=== PATIENT | female | born 1945 | race Caucasian/White ===

== ENCOUNTER → 2016-11-29 | Outpatient (CLI) | payer OTHER | LOC: RAD 15:48 | DX: M54.9 Dorsalgia, unspecified (principal); M47.816 Spondylosis without myelopathy or radiculopathy, lumbar region | CPT/HCPCS: 72110 ==

== ENCOUNTER → 2016-12-13 | Outpatient (CLI) | payer OTHER | LOC: EMI 17:09 | DX: M54.16 Radiculopathy, lumbar region (principal); M51.26 Other intervertebral disc displacement, lumbar region | CPT/HCPCS: 72148 ==

== ENCOUNTER 2021-09-23 12:35 | Emergency (ER) | payer MEDICARE, MEDICAID ==
[~2021-09-23 12:35] MED LIST: ADVAIR HFA 230/1 INH INH; ASPIR 8181 MG PO; ASPIR-LOW81 MG PO; ATORVASTATIN CA20 MG PO; BRILINTA 90 MG90 MG PO; CEFPODOXIME PR200 MG PO; CRESTOR20 MG PO; IMDUR ER TAB 3030 MG PO; LOPRESSOR 25 MG25 MG PO; LOPRESSOR100 MG PO; MEDROL DOSEPAK 24 MG PO; NITROGLYCERIN0.4 MG SL; PANTOPRAZOLE SO40 MG PO; TOPROL XL25 MG PO
[2021-09-23 13:01] LABS: HEMOGLOBIN 14.3 gm/dl (12.3-15.3); RED BLOOD COUNT 4.57 M/UL (4.00-5.10); WHITE BLOOD COUNT 7.7 K/UL (4.5-11.0)
== END 2021-09-23 15:15 | disposition home or self-care (01) ==
LOC: ER1 12:35
PROVIDERS: Family Medicine
DX: N28.9 Disorder of kidney and ureter, unspecified (principal)
CPT/HCPCS: 80048; 83735; 85025; 93005; 99284

== ENCOUNTER 2022-02-22 13:16 | Inpatient (IN) | payer MEDICARE, OTHER ==
[~2022-02-22] VITALS: Ht 165.1 cm; Wt 77.1 kg
[2022-02-22 14:03] LABS: HEMOGLOBIN 14.1 gm/dl (12.3-15.3); RED BLOOD COUNT 4.71 M/UL (4.00-5.10); WHITE BLOOD COUNT 6.7 K/UL (4.5-11.0)
[2022-02-22 14:24] LABS: BUN/CREATININE RATIO 17 (0-10)
[2022-02-22] MEDS ORDERED: CILOSTAZOL100 MG PO (16:51)
[2022-02-22] MEDS ORDERED: CRESTOR20 MG PO (16:51)
[2022-02-22] MEDS ORDERED: TRAMADOL-ACETA1 EACH PO (16:52)
[2022-02-22] MEDS ORDERED: BRILINTA90 MG PO (16:52)
[2022-02-22] MEDS ORDERED: ASPIRIN EC81 MG PO (16:52)
[2022-02-22] MEDS ORDERED: FUROSEMIDE20 MG PO (16:52)
[2022-02-23 02:57] LABS: HEMOGLOBIN 13.4 gm/dl (12.3-15.3); RED BLOOD COUNT 4.48 M/UL (4.00-5.10); WHITE BLOOD COUNT 7.1 K/UL (4.5-11.0)
--- NOTE | 2022-02-23 16:01 | NUR ---
DR. BRAVO on the floor seeing patient and received order.
[2022-02-24 03:49] LABS: HEMOGLOBIN 13.6 gm/dl (12.3-15.3); RED BLOOD COUNT 4.74 M/UL (4.00-5.10)
[2022-02-24 03:52] LABS: WHITE BLOOD COUNT 3.4 K/UL (4.5-11.0)
--- NOTE | 2022-02-24 12:53 | NUR ---
PATIENT NOTED TO HAVE OXYGEN SATURATION BELOW 90% AT TIMES. PATIENT OFTEN REMOVES NASAL CANNULA FOR COMFORT, MOUTH BREATHES DURING SLEEP, AND DESATS WHEN EATING. RN, RESPIRATORY THERAPIST, AND OTHER STAFF REMIND PATIENT FREQUENTLY TO BREATH IN OXYGEN VIA NASAL CANNULA. PATIENT VERBALIZES UNDERSTANDING BUT, EPISODES CONTINUE.
--- NOTE | 2022-02-24 15:48 | NUR ---
RN ENTERED PATIENT'S ROOM AFTER TELEMETRY NOTIFIED RN OF PATIENT'S LOW OXYGEN SATURATION. PATIENT NOTED TO HAVE OXYGEN OFF AND REFUSED TO LET RN REAPPLY IT. RN EDUCATED PATIENT ON DANGERS OF A LOW OXYGEN SATURATION AND PATIENT STATED IF RN WOULD GIVE HER A DRINK OF WATER, SHE WOULD PUT HER OXYGEN ON. RN DID THIS AND PATIENT REAPPLIED OXYGEN. PATIENT STATED WATER WASN'T CLOSE ENOUGH TO HER ON HER BEDSIDE TABLE SO RN MOVED IT UNDERNEATH HER BED FURTHER SO SHE COULD REACH IT. PATIENT DENIED ANY FURTHER NEEDS AT PRESENT. BED LOCKED AND LOW. CALL LIGHT WITHIN REACH.
--- NOTE | 2022-02-24 16:27 | NUR ---
PATIENT NOTED TO HAVE FLUSHED SKIN TONE AND ACTING MORE CONFUSED THAN EARLIER. RN CALLED RESPIRATORY THERAPIST TO ASSESS PATIENT AND NOTIFIED MD OF CONDITION CHANGE. MD STATED IF PATIENT'S OXYGEN WAS 90% OR GREATER, THERE WAS NOTHING MORE TO BE DONE AT THIS TIME AND ORDERED RN TO MONITOR PATIENT.
--- NOTE | 2022-02-24 17:45 | NUR ---
RN ATTEMPTED TO CALL REPORT TO PCU NURSE, PCU NURSE STATED SHE WOULD CALL RN WHEN ROOM WAS CLEAN. RN GAVE PCU NURSE CALL BACK NUMBER.
--- NOTE | 2022-02-24 20:29 | NUR ---
report given to magdalene
[2022-02-25 01:50] LABS: HEMOGLOBIN 11.9 gm/dl (12.3-15.3); WHITE BLOOD COUNT 12.4 K/UL (4.5-11.0)
[2022-02-25 01:51] LABS: RED BLOOD COUNT 4.02 M/UL (4.00-5.10)
[2022-02-26 01:38] LABS: HEMOGLOBIN 11.8 gm/dl (12.3-15.3); RED BLOOD COUNT 3.97 M/UL (4.00-5.10); WHITE BLOOD COUNT 14.2 K/UL (4.5-11.0)
[2022-02-27 07:11] LABS: HEMOGLOBIN 12.6 gm/dl (12.3-15.3); RED BLOOD COUNT 4.27 M/UL (4.00-5.10); WHITE BLOOD COUNT 13.5 K/UL (4.5-11.0)
[2022-02-28 02:07] LABS: HEMOGLOBIN 11.7 gm/dl (12.3-15.3); RED BLOOD COUNT 3.97 M/UL (4.00-5.10); WHITE BLOOD COUNT 10.7 K/UL (4.5-11.0)
[2022-03-01 02:09] LABS: HEMOGLOBIN 12.8 gm/dl (12.3-15.3); RED BLOOD COUNT 4.36 M/UL (4.00-5.10); WHITE BLOOD COUNT 9.6 K/UL (4.5-11.0)
[2022-03-02 03:26] LABS: HEMOGLOBIN 12.1 gm/dl (12.3-15.3); RED BLOOD COUNT 4.07 M/UL (4.00-5.10); WHITE BLOOD COUNT 8.5 K/UL (4.5-11.0)
--- NOTE | 2022-03-03 06:15 | NUR ---
HERNANDO PASSWORD: [employer]
[2022-03-03] MEDS ORDERED: CRESTOR 10 MG T10 MG PO (14:40)
[2022-03-03] MEDS ORDERED: SYMBICORT 80-41 INHA INH (14:56)
[2022-03-03] MEDS ORDERED: COMBIVENT RESPIM4 GM INH (14:56)
--- NOTE | 2022-03-03 16:00 | NUR ---
PATIENT AND FAMILY STATE THEY DID NOT BRING THE HOME OXYGEN TANK THAT WAS ASKED TO BE BROUGHT FOR DISCHARGE. PATIENT AND FAMILY STATE PATIENT WILL BE OKAY TO GO HOME WITHOUT AN OXYGEN TANK, THEY "LIVE CLOSE BY". PATIENT AND FAMILY EDUCATED ON THE NEED FOR OXYGEN AND THE RISKS OF NOT WEARING IT. PATIENT AND FAMILY STATE THEY UNDERSTAND AND WILL MAKE IT HOME WITHOUT IT.
--- NOTE | 2022-03-03 16:41 | NUR ---
REPORT CALLED TO [facility] AND GIVEN TO LEA.
== END 2022-03-03 16:25 | disposition home health service (06) | DRG 177 ==
LOC: ER1 13:16 → CDU 16:17 → PROG CARE 16:17 → M/S 16:17 → PROG CARE 02-24 20:41
PROVIDERS: Internal Medicine; Internal Medicine Infectious Disease; Physician Assistant; Physician Assistant Medical; ADMIT Internal Medicine
PROC: 8E0ZXY6 Isolation (ICD-10-PCS; principal; 2022-02-22)
PROC: XW033E5 Introduction of Remdesivir Anti-infective into Peripheral Vein, Percutaneous Approach, New Technology Group 5 (ICD-10-PCS; 2022-02-22)
PROC: 3E0333Z Introduction of Anti-inflammatory into Peripheral Vein, Percutaneous Approach (ICD-10-PCS; 2022-02-22)
PROC: 3E03329 Introduction of Other Anti-infective into Peripheral Vein, Percutaneous Approach (ICD-10-PCS; 2022-02-22)
PROC: 3E043XZ Introduction of Vasopressor into Central Vein, Percutaneous Approach (ICD-10-PCS; 2022-02-26)
PROC: 05HM33Z Insertion of Infusion Device into Right Internal Jugular Vein, Percutaneous Approach (ICD-10-PCS; 2022-02-26)
PROC: B543ZZA Ultrasonography of Right Jugular Veins, Guidance (ICD-10-PCS; 2022-02-26)
DX: U07.1 COVID-19 (principal); A41.9 Sepsis, unspecified organism; J12.82 Pneumonia due to coronavirus disease 2019; R65.21 Severe sepsis with septic shock; J15.9 Unspecified bacterial pneumonia; J96.21 Acute and chronic respiratory failure with hypoxia; J96.22 Acute and chronic respiratory failure with hypercapnia; R57.1 Hypovolemic shock; E87.1 Hypo-osmolality and hyponatremia; J44.0 Chronic obstructive pulmonary disease with (acute) lower respiratory infection; N17.9 Acute kidney failure, unspecified; I25.10 Atherosclerotic heart disease of native coronary artery without angina pectoris; I10 Essential (primary) hypertension; E11.9 Type 2 diabetes mellitus without complications; I65.29 Occlusion and stenosis of unspecified carotid artery; E78.5 Hyperlipidemia, unspecified; R91.8 Other nonspecific abnormal finding of lung field; Z66 Do not resuscitate; Z87.891 Personal history of nicotine dependence; Z95.1 Presence of aortocoronary bypass graft; Z99.81 Dependence on supplemental oxygen; Z90.89 Acquired absence of other organs; Z88.2 Allergy status to sulfonamides; Z91.048 Other nonmedicinal substance allergy status; Z79.899 Other long term (current) drug therapy; Z79.82 Long term (current) use of aspirin; Z98.890 Other specified postprocedural states
CPT/HCPCS: ECHO; 0240U; 36415; 36600; 71045; 71250; 80048; 80053; 80061; 80076; 82550; 82553; 82803; 82962; 83036; 83605; 83735; 83880; 84484; 85025; 85027; 86140; 87205; 93005; 93306; 94640; 94760; 97110; 97116; 97116-GP-CQ; 97161; 97165; 97530; 97530-GP-CQ; 97535; 99285; J0248; J0295; J1100; J1650; J1956; J2060; J2185; J2370; J2405; J3475; J7030; J7040; J7050; Q9967

== ENCOUNTER 2022-03-24 20:55 | Emergency (ER) | payer MEDICARE ==
[~2022-03-24 20:55] MED LIST changes: +ASPIRIN EC81 MG PO; +BRILINTA90 MG PO; +CILOSTAZOL100 MG PO; +COMBIVENT RESPIM4 GM INH; +CRESTOR 10 MG T10 MG PO; +FUROSEMIDE20 MG PO; +SYMBICORT 80-41 INHA INH; +TRAMADOL-ACETA1 EACH PO
[2022-03-24 22:05] LABS: HEMOGLOBIN 12.3 gm/dl (12.3-15.3); RED BLOOD COUNT 4.1 M/UL (4.00-5.10); WHITE BLOOD COUNT 9.2 K/UL (4.5-11.0)
[2022-03-24] MEDS ORDERED: ZOFRAN 4 MG TAB4 MG PO (23:52)
[2022-03-24] MEDS ORDERED: DULCOLAX5 MG PO (23:52)
[2022-03-24] MEDS ORDERED: ENULOSE10 GM/15 M PO (23:52)
== END 2022-03-25 00:05 | disposition home or self-care (01) ==
LOC: ER1 20:55
PROVIDERS: Emergency Medicine
DX: K59.00 Constipation, unspecified (principal); F17.200 Nicotine dependence, unspecified, uncomplicated; I11.9 Hypertensive heart disease without heart failure
CPT/HCPCS: 74018; 80053; 85025; 96374; 99284; J2405